=== PATIENT | female | born 2000 | race Two or more races ===

== ENCOUNTER 2022-07-11 08:29 | Emergency (ER) | payer MEDICAID, OTHER ==
[~2022-07-11] VITALS: Ht 152.4 cm; Wt 53.7 kg
[2022-07-11 09:27] LABS: Urine Bacteria MOD /hpf (None Seen); Urine Blood Negative /uL (Negative); Urine Mucus FEW (None Seen); Urine Specific Gravity 1.031 (1.001-1.035); Urine WBC 55 /hpf (0 - 5)
[2022-07-11] MEDS ORDERED: LORazepam 2MG/ML-1ML VIAL IV ONE (09:30)
[2022-07-11] MEDS ORDERED: SODIUM CHLORIDE 0.9% 1,000 ML IV ONE (09:30)
[2022-07-11 09:42] LABS: Eosinophils # (auto) 0 10 ^3/uL (0-0.8); Eosinophils % (auto) 0.2 % (0.0-7.0); Lymphocytes # (auto) 1.4 10 ^3/uL (0.4-5.4)
[2022-07-11 09:45] LABS: Basophils # (auto) 0 10 ^3/uL (0-0.2); Basophils % (auto) 0.6 % (0.0-2.0); Hematocrit 53.1 % (36.0-46.0); Hemoglobin 18.4 g/dL (12.2-16.2); Lymphocytes % (auto) 23.6 % (10.0-50.0); Mean Corpuscular Hemoglobin 30.5 pg (28.0-32.0); Mean Corpuscular Hgb Conc. 34.7 g/dL (32.0-36.0); Mean Corpuscular Volume 87.8 fL (80.0-100.0); Monocytes # (auto) 0.7 10 ^3/uL (0-1.3); Monocytes % (auto) 11.7 % (0.0-12.0); Neutrophils # (auto) 3.7 10 ^3/uL (1.6-8.6); Neutrophils % (auto) 63.9 % (37.0-80.0); Nucleated Red Blood Cells % 0.9 %; Red Blood Cells 6.05 10^6/uL (4.0-5.20); White Blood Cell 5.7 10^3/uL (4.4-10.8)
[2022-07-11 10:00] LABS: Albumin 4.1 g/dL (3.4-5.0); Potassium 3.9 mmol/L (3.5-5.1)
[2022-07-11 10:04] LABS: BUN/Creatinine Ratio 11.6; Bilirubin, Total 0.9 mg/dL (0.2-1.0)
[2022-07-11] MEDS ORDERED: IBU600T PO (11:27)
[2022-07-11] MEDS ORDERED: NITR-87 PO (11:27)
[2022-07-11 12:32] VITALS: BP 118/70
== END 2022-07-11 12:33 | disposition home or self-care (01) ==
LOC: ER 08:29
DX: N39.0 Urinary tract infection, site not specified (principal); N83.202 Unspecified ovarian cyst, left side; Z87.891 Personal history of nicotine dependence
CPT/HCPCS: 36415; 74176; 80053; 81001; 84702; 85025; 85379

== ENCOUNTER 2024-10-27 12:53 | Emergency (ER) | payer MEDICAID ==
[~2024-10-27] VITALS: Ht 152.4 cm; Wt 59.9 kg
[~2024-10-27 12:53] MED LIST: IBU600T PO; NITR-87 PO
[2024-10-27 13:39] VITALS: BP 134/84; PULSE 84; RESP 16; TEMP 98.6; O2SAT 96
[2024-10-27] MEDS ORDERED: BACDST PO (14:08)
[2024-10-27] MEDS ORDERED: NAPR-746 PO (14:08)
--- NOTE | 2024-10-27 14:15 | ED.PDOC ---
History of Present Illness(SKN HPI Comments A 24 YEAR OLD FEMALE PRESENTS TO THE ED WITH COMPLAINT OF REDNESS AND PAIN TO LEFT ELBOW, INNER BICEP, AND ARMPIT FOR THE PAST 3X DAYS, TODAY. PATIENT REPORTS ONGOING SYMPTOMS FOLLOWING INITIAL ONSET. SHE COMMENTS ON RECENT MULTIPLE TATTOO ACQUISITION TO HER LEFT ARM BUT OTHERWISE RECALLS NO OTHER EVENTS THAT MAY HAVE CAUSED SYMPTOMS. PATIENT DENIES FEVER, CHILLS, SHORTNESS OF BREATH, CHEST PAIN, ABDOMINAL PAIN, NAUSEA, VOMITING, HEADACHE, OR OTHER COMPLAINTS. NO OTHER SYMPTOMS OR MODIFYING FACTORS AT THIS TIME. Chief Complaint: Insect Bite Time Seen by MD: 14:00 Primary Care Provider: NONE History of Present Illness: Nurses Notes, Medications, Allergies Allergies: Coded Allergies: NO KNOWN ALLERGIES (Unverified , 07/11/22) Home Meds Active Scripts Naproxen (Naproxen) 500 Mg Tab, 500 MG PO BID, #30 TAB Prov:BO WEN 4/25 Sulfamethoxazole W/Trimethopri (Bactrim Ds Tablet) 1 Tab Tb, 1 TAB PO BID, #20 TAB Prov:OB WEN 10/27/25 Ibuprofen Micronized (MOTRIN TABLET) 600 Mg Tb, 600 MG PO TID PRN for 5 Days, #15 TAB *Black box warning-NSAIDS can increase risk of CO & hypertension, GI irritation, ulceration, bleed, perferation. Do not use post cardiac surgery. Use short duration/lowest effective dose. Prov:DENITA STRANGE MD 07/11/22 Nitrofurantoin Monohydrate Mac (Macrobid) 100 Mg Cap, 100 MG PO BID for 7 Days, #14 CAP Prov:DENITA STRANGE MD 07/11/22 Information Source: Patient Mode of Arrival: Ambulatory Severity: Moderate Timing: Days Duration: Since onset, Days Prehospital treatment: None Location: Arm, Extremities Mechanism: Insect Object: Other Tetanus: UTD Associated Signs and Symptoms: Redness, Swelling, Pain, Other (REDNESS PATCH TO LEFT ELBOW, INNER BICEP, AND ARMPIT) Past Medical History PAST MEDICAL HISTORY: Denies Surgical History: Denies all surgeries LAYOUT OPERATOR History: Denies all LAYOUT OPERATOR Hx Family History Family History: Reviewed,noncontributory to illness Social History Smoker: Quit Less Than 1 Year Alcohol: Denies ETOH Use Drugs: Denies Drug Use Lives In: Home Constitutional: denies: chills, diaphoresis, fatigue, fever, malaise, sweats, weakness, others EENTM: denies: blurred vision, double vision, ear bleeding, ear discharge, ear drainage, ear pain, ear ringing, eye pain, eye redness, hearing loss, mouth pain, mouth swelling, nasal discharge, nose bleeding, nose congestion, nose pain, photophobia, tearing, throat pain, throat swelling, voice changes, others Respiratory: denies: cough, hemoptysis, orthopnea, SOB at rest, shortness of breath, SOB with excertion, stridor, wheezing, others Cardiovascular: denies: chest pain, dizzy spells, diaphoresis, Dyspnea on exertion, edema, irregular heart beat, left arm pain, lightheadedness, palpitations, PND, syncope, others Gastrointestinal: denies: abdomen distended, abdominal pain, blood streaked bowels, constipated, diarrhea, dysphagia, difficulty swallowing, hematemesis, melena, nausea, poor appetite, poor fluid intake, rectal bleeding, rectal pain, vomiting, others Genitourinary: denies: abnormal vagina bleeding, burning, dyspareunia, dysuria, flank pain, frequency, hematuria, incontinence, pain, , vagina discharge, urgency, others Neurological: denies: dizziness, fainting, headache, left sided numbness, left sided weakness, numbness, paresthesia, pre-existing deficit, right sided n umbness, right sided weakness, seizure, speech problems, tingling, tremors, weakness, others Musculoskeletal: reports: joint pain (LEFT ELBOW PAIN ), others (REDNESS PATCH TO LEFT ELBOW, INNER BICEP, AND ARMPIT); denies: back pain, gout, joint swelling, muscle pain, muscle stiffness, neck pain Integumetry: reports: lumps (RIGHT INNER ARM AND LEFT POSTERIOR ELBOW. ), others (REDNESS PATCH TO LEFT ELBOW, INNER BICEP, AND ARMPIT); denies: bruises, change in color, change in hair/nails, dryness, laceration, lesions, rash, wounds Allergic/Immunocompromised: denies: Difficulty Healing, Frequent Infections, Hives, Itching, others Hematologic/Lymphatic: denies: anemia, blood clots, easy bleeding, easy bruising, swollen glands, others Endocrine: denies: excessive hunger, excessive sweating, excessive thirst, excessive urination, flushing, intolerance to cold, intolerance to heat, unexplained weight gain, unexplained weight loss, others Psychiatric: denies: anxiety, bipolar disorder, depression, hopeless, panic disorder, schizophrenia, sleepless, suicidal, others All Other Systems: Reviewed and Negative Physical Exam General Appearance: No Apparent Distress, Normal HEENT: Normal ENT Inspection, PERRL/EOMI, Pharynx Normal, TMs Normal Neck: Full Range of Motion, Non-Tender, Normal, Normal Inspection Respiratory: Chest Non-Tender, Lungs Clear, No Accessory Muscle Use, No Respiratory Distress, Normal Breath Sounds Cardiovascular: No Edema, No JVD, No Murmur, No Gallop, Normal Peripheral Pulses, Regular Rate/Rhythm Breast Exam: Deferred Gastrointestinal: No Organomegaly, Non Tender, No Pulsatile Mass, Normal Bowel Sounds, Soft Genitalia: Deferred Pelvic: Deferred Rectal: Deferred Extremities: No calf tenderness, Normal capillary refill, Normal range of motion, No pedal edema, Tender (WITH RED BUMPS ON LEFT INNER ARM AND LEFT POSTERIOR ELBOW. ) Musculoskeletal : Apperance: Normal Neurologic: Alert, clearance center manager II-XII nml as Tested, No Motor Deficits, Normal Affect, Normal Mood, No Sensory Deficits Cerebellar Function: Normal Reflexes: Normal Skin: Dry, Warm, Other (TWO BUMPS WITH LOCALIZED REDNESS, SWELLING AND HARDNESS ON LEFT INNER ARM AND LEFT POSTERIOR ELBOW, NO OPEN WOUND SEEN, +BITE NIR. ) Peripheral Pulses: 2+ carotid (R), 2+ carotid (L) Lymphatic: No Adenopathy Was a procedure done? Was a procedure done?: No Differential Diagnosis (INTG) Differential Diagnosis: Cellulitis, Insect Envenomation, Other (INSECT BITE WOUND) Differential Diagnosis: Impetigo, Intertrigo, Psoriasis, Urticaria X-Ray, Labs, Meds, VS Vital Signs Date Time Temp Pulse Resp B/P (MAP) Pulse Ox O2 Delivery O2 Flow Rate FiO2 10/27/24 13:39 98.6 84 16 134/84 (101) 96 98.6 10/27/24 13:39 84 16 96 Room Air 10/27/24 13:00 98.6 84 16 134/84 (101) 96 98.6 Current Medications Medications (Trade) Dose Ordered Sig/Darell Route Start Time Stop Time Status Last Admin Ceftriaxone Sodium (Rocephin) 1,000 mg ONCE ONCE IM 10/27/24 14:15 10/27/24 14:16 DC 10/27/24 14:20 X-Ray, Labs, Meds, VS Comment EXTERNAL MEDICAL RECORDS REVIEWED: [NONE] INDEPENDENT HISTORIANS: [NONE] SOCIAL DETERMINANTS OF HEALTH: [NONE] LABS ORDERED: NONE REVIEWED AND INTERPRETED RESULTS: NONE IMAGING ORDERED: NONE TREATMENTS ORDERED: [id number] 1GM IM PROCEDURES PERFORMED: NONE CRITICAL CARE TIME: NONE I HAVE DISCUSSED THE PATIENT WITH THE ATTENDING PHYSICIAN [PHYSICIAN'S NAME] AND HE AGREES WITH THE PATIENT'S PLAN OF CARE AND DISPOSITION. BASED ON HISTORY OF PRESENT ILLNESS, AND PHYSICAL EXAM, PATIENT WILL BE DISCHARGED HOME. DISCUSSED PLAN FOR DISCHARGE HOME WITH RX BACTRIM, IBUPROFEN MEDICATION WARNINGS GIVEN. SHARED DECISION MAKING: DISCUSSED WITH PATIENT THAT THEIR WORKUP WAS NORMAL. PATIENT INSTRUCTED TO FOLLOW UP WITH PRIMARY CARE PROVIDER IN 1-2 DAYS FOR RE- EVALUATION OF SYMPTOMS. PATIENT VERBALIZES UNDERSTANDING TO RETURN TO ED FOR NEW OR WORSENING SYMPTOMS OR IF FOLLOW UP WITH PCP CANNOT BE OBTAINED. PATIENT FEELS COMFORTABLE GOING HOME AT THIS TIME. ALL QUESTIONS ADDRESSED AT TIME OF DISCHARGE. Time of 1ST Reevaluation: 14:34 Reevaluation 1ST: Unchanged Patient Education/Counseling: Diagnosis, Treatment, Need For Follow Up Family Education/Counseling: No Family Present Departure 1 Departure Time of Disposition: 14:35 Impression: Primary Impression: Insect bite Qualified Codes: S50.362A - Insect bite (nonvenomous) of left elbow, initial encounter; W57.XXXA - Bitten or stung by nonvenomous insect and other nonvenomous arthropods, initial encounter Disposition: 01 HOME / SELF CARE / HOMELESS Condition: Stable Additional Instructions: FOLLOW-UP WITH PCP IN 1 TO 2 DAYS. TAKE MEDICATIONS PRESCRIBED. RETURN TO ED FOR ANY NEW OR WORSENING SYMPTOMS. e-Prescriptions Naproxen (Naproxen) 500 Mg Tab 500 MG PO BID, #30 TAB Prov: BO WEN 10/27/24 Sulfamethoxazole W/Trimethopri (Bactrim Ds Tablet) 1 Tab Tb 1 TAB PO BID, #20 TAB Prov: BO WEN 10/27/24 Discharged With: Self, Relative Critical Care Note Critical Care Time?: No Stability Stability form required: No Heart Score Heart Score: Heart Score Response (Comments) Value History N/A 0 EKG N/A 0 Age N/A 0 Risk Factors N/A 0 Troponin N/A 0 Total 0 I personally scribed for BO WEN ([email or web address]) on 10/27/24 at 14:15. Electronically submitted by Jorge Donaldson ([email or web address]). BO WEN Oct 27, 2024 14:15
[2024-10-27] MEDS: cefTRIAXone SOD 1,000 MG VL IM ONE (14:20)
[2024-10-27] MEDS: LIDOCAINE 1% HCL (LOCAL ANESTH.) INJ 20ML MDV ONE (14:24)
== END 2024-10-27 14:36 | disposition home or self-care (01) ==
LOC: ER 12:53
DX: R22.32 Localized swelling, mass and lump, left upper limb (principal); M25.522 Pain in left elbow; Z87.891 Personal history of nicotine dependence; Z79.899 Other long term (current) drug therapy; W57.XXXA Bitten or stung by nonvenomous insect and other nonvenomous arthropods, initial encounter; Y93.89 Activity, other specified; Y92.89 Other specified places as the place of occurrence of the external cause; Y99.8 Other external cause status
CPT/HCPCS: 96372; 99283; J0696; J2003